=== PATIENT | female | born 1950 | race Caucasian/White ===

== ENCOUNTER 2023-12-18 06:33 | Emergency (ER) | payer MEDICARE, OTHER ==
[2023-12-18] MEDS ORDERED: Lorazepam 2 MG/ML VIAL ONE (07:47)
[2023-12-18] MEDS ORDERED: HYDROcodone/Acetaminophen 5/325 mg Tablet ONE (09:10)
== END 2023-12-18 09:22 | disposition home or self-care (01) ==
LOC: CSHERS 06:33
DX: S39.012A Strain of muscle, fascia and tendon of lower back, initial encounter (principal); I10 Essential (primary) hypertension; E78.5 Hyperlipidemia, unspecified; M81.0 Age-related osteoporosis without current pathological fracture; Z55.6 Problems related to health literacy; Z79.899 Other long term (current) drug therapy; W18.30XA Fall on same level, unspecified, initial encounter
CPT/HCPCS: 72100; 96374; J2060